=== PATIENT | female | born 1990 | race Caucasian/White ===

== ENCOUNTER 2016-03-07 17:29 | Inpatient (IN) | payer OTHER ==
[~2016-03-07] VITALS: Ht 167.6 cm; Wt 61.2 kg
[2016-03-07] MEDS: D5W AND NSS 1,000 ML IV SCH (14:30)
[2016-03-07] MEDS ORDERED: SODIUM CHLORIDE 0.9% 1000ML 2,000 ML IV STA (17:40)
[2016-03-07] MEDS ORDERED: ONDANSETRON INJ 2 MG/ML 2 ML VIAL IV STA (17:43)
--- NOTE | 2016-03-07 18:22 | DIAGNOSTIC IMAGING REPORT ---
CHEST ONE VIEW PORTABLE CLINICAL HISTORY: Atypical chest pain, syncope, difficulty breathing. COMPARISON STUDY: No previous studies for comparison. FINDINGS: The cardiac and mediastinal contours are normal. There is no evidence of focal pulmonary consolidation. There is no evidence of failure. No pleural effusions are visualized.[ IMPRESSION: No active disease in the chest. Electronically signed by: Cooper Perae M.D. 03/07/2016 6:21 PM Dictated Date/Time: 03/07/2016 6:20 PM
[2016-03-07 18:33] LABS: BASO % 0.6 %; BASO ABS # 0.04 K/uL (0-0.2); COMPLETE YES; EOS % 2.8 %; IG% 0.1 %; LYMPH ABS # 1.97 K/uL (1.2-3.4); MEAN CELL VOLUME 82.9 fL (80-100); MEAN CORPUSCULAR HEMOGLOBIN 29.7 pg (25-34); MEAN CORPUSCULAR HGB CONC 35.8 g/dl (32-36); MEAN PLATELET VOLUME 13.1 fL (7.4-10.4); MONO % 7.5 %; PLATELET COUNT 199 K/uL (130-400); RED BLOOD COUNT 4.34 M/uL (4.2-5.4); WHITE BLOOD COUNT 7.04 K/uL (4.8-10.8)
[2016-03-07 18:41] LABS: ALT/SGPT 17 U/L (12-78); AST/SGOT 11 U/L (15-37); BLOOD UREA NITROGEN 10 mg/dl (7-18); BUN/CREATININE RATIO 13.1 (10-20); CALCIUM 9.4 mg/dl (8.5-10.1); CARBON DIOXIDE 19 mmol/L (21-32); CHLORIDE 102 mmol/L (98-107); CREATININE 0.77 mg/dl (0.60-1.20); GLUCOSE 73 mg/dl (70-99); MAGNESIUM 2.2 mg/dl (1.8-2.4); SODIUM 137 mmol/L (136-145)
[2016-03-07 18:46] LABS: ALKALINE PHOSPHATASE 73 U/L (45-117)
--- NOTE | 2016-03-07 20:40 | EMERGENCY ROOM VISIT NOTE ---
History Report prepared by Mk: Maritza Pascual Under the Supervision of: Hilda LorenzanaO. First contact with patient: 17:34 Chief Complaint: ILLNESS Stated Complaint: SOB, SYNCOPE, AB PAIN History of Present Illness The patient is a 25 year old female who presents to the Emergency Room with complaints of a persistent illness that began two weeks ago. The patient states that she took a test two weeks ago that came back positive. She states that since then she has been ill. The patient states that each morning she is sick with vomiting, abdominal pain, nausea, a headache, shortness of breath, and weakness. She states that all her symptoms last throughout the day. The patient states that she has not kept any food or water down for the past two weeks. She states that she cannot swallow her saliva without vomiting. The patient [place] and has been living in the [facility] since November. She states that she had four syncopal episodes today. The patient denies any active medical problems, and does not wish to have anything done because she does not have medical insurance. She keeps saying, "send me home." Per EMS the patient's blood glucose was 80 mg/dL, her blood pressure is 104/60 mmHg, and police found the patient after a syncopal episode. Pt denies change in vision, cough, sore throat, runny nose, fevers, diarrhea, vaginal bleeding or discharge, pain with urination, and melena. Source of History: patient, EMS Onset: two weeks ago Position: other (global) Quality: other (illness) Timing: other (persistent) Associated Symptoms: + SOB, + abdominal pain, + headache, + nausea, + vomiting, + weakness Review of Systems See HPI for pertinent positives & negatives. A total of 10 systems reviewed and were otherwise negative. Past Medical & Surgical No active medical problems. Family History No pertinent family history stated. Social History Marital Status: in relationship Current/Historical Medications No Active Prescriptions or Reported Meds Allergies Coded Allergies: No Known Allergies (Unverified , 03/07/16) Physical Exam Vital Signs Date Time Temp Pulse Resp B/P Pulse Ox O2 Delivery O2 Flow Rate FiO2 03/07/16 20:20 58 16 92/48 100 Room Air 03/07/16 17:50 37.2 78 22 117/60 100 Room Air Physical Exam GENERAL: Sitting up in bed, disheveled, holding spit in her mouth. EYE EXAM: normal conjunctiva, PERRL and EOM's grossly intact OROPHARYNX: no exudate, no erythema, lips, buccal mucosa, and tongue normal and mucous membranes are moist NECK: supple, no nuchal rigidity, no adenopathy, non-tender LUNGS: Clear to auscultation. Normal chest wall mechanics HEART: no murmurs, S1 normal and S2 normal ABDOMEN: abdomen soft, non-tender, normo-active bowel sounds, no masses, no rebound or guarding. BACK: Back is symmetrical on inspection and there is no deformity, no midline tenderness, no CVA tenderness. SKIN: no rashes and no bruising UPPER EXTREMITIES: upper extremities are grossly normal. LOWER EXTREMITIES: No pitting edema. Calves are equal bilaterally NEURO EXAM: Alert, opens eyes to commands, no focal deficit, answering questioning appropriately. Medical Decision & Procedures ER Provider Diagnostic Interpretation: Xray results per the radiologist and my interpretation. Other results have been interpreted by the radiologist and reviewed by me. CHEST ONE VIEW PORTABLE CLINICAL HISTORY: Atypical chest pain, syncope, difficulty breathing. COMPARISON STUDY: No previous studies for comparison. FINDINGS: The cardiac and mediastinal contours are normal. There is no evidence of focal pulmonary consolidation. There is no evidence of failure. No pleural effusions are visualized.[ IMPRESSION: No active disease in the chest. Electronically signed by: Cooper Perea M.D. 03/07/2016 6:21 PM Dictated Date/Time: 03/07/2016 6:20 PM <14 WKS SINGLE CLINICAL HISTORY: with lower abdominal pain COMPARISON STUDY: No previous studies for comparison. FINDINGS: A single alive intrauterine gestation is visualized. The crown-rump rump length measures 14 mm corresponding to an estimated postmenstrual age of 7 weeks and 5 days. There are small subchorionic hematomas. The heart rate is 154. The right ovary measures 6.8 x 3.4 x 4.1 cm. It contains a 4.5 cm cyst. There is a 2.5 cm adjacent echogenic focus. It is unclear whether this represents fat or adjacent bowel. The left ovary measures 32 x 13 x 16 mm. There is also echogenic focus adjacent the left ovary. Is unclear whether this represents bowel or fat. A CT scan or MRI following delivery is recommended. IMPRESSION: 1. Single alive intrauterine gestation. The estimated postmenstrual age is 7 weeks and 5 days 2. Small subchorionic hematomas 3. 4.5 cm right ovarian cyst. No septations or mural nodules are visualized 4. Echogenic foci adjacent to each ovary. It is unclear whether these represent adjacent bowel loops, or fat as would be seen in ovarian teratomas. Following delivery, a CT scan or MRI of the pelvis is recommended. Electronically signed by: Cooper Perea M.D. 03/07/2016 8:50 PM Dictated Date/Time: 03/07/2016 8:43 PM US IMPRESSION: 1. Single alive intrauterine gestation. The estimated postmenstrual age is 7 weeks and 5 days 2. Small subchorionic hematomas 3. 4.5 cm right ovarian cyst. No septations or mural nodules are visualized 4. Echogenic foci adjacent to each ovary. It is unclear whether these represent adjacent bowel loops, or fat as would be seen in ovarian teratomas. Following delivery, a CT scan or MRI of the pelvis is recommended. Laboratory Results 03/07/16 17:15 Red Blood Count 4.34, Mean Corpuscular Volume 82.9, Mean Corpuscular Hemoglobin 29.7, Mean Corpuscular Hemoglobin Concent 35.8, Mean Platelet Volume 13.1, Neutrophils (%) (Auto) 61.0, Lymphocytes (%) (Auto) 28.0, Monocytes (%) (Auto) 7.5, Eosinophils (%) (Auto) 2.8, Basophils (%) (Auto) 0.6, Neutrophils # (Auto) 4.29, Lymphocytes # (Auto) 1.97, Monocytes # (Auto) 0.53, Eosinophils # (Auto) 0.20, Basophils # (Auto) 0.04 03/07/16 17:15 Test 03/07/16 17:15 White Blood Count 7.04 K/uL (4.8-10.8) Red Blood Count 4.34 M/uL (4.2-5.4) Hemoglobin 12.9 g/dL (12.0-16.0) Hematocrit 36.0 % (37-47) Mean Corpuscular Volume 82.9 fL (80-100) Mean Corpuscular Hemoglobin 29.7 pg (25-34) Mean Corpuscular Hemoglobin Concent 35.8 g/dl (32-36) Platelet Count 199 K/uL (130-400) Mean Platelet Volume 13.1 fL (7.4-10.4) Neutrophils (%) (Auto) 61.0 % Lymphocytes (%) (Auto) 28.0 % Monocytes (%) (Auto) 7.5 % Eosinophils (%) (Auto) 2.8 % Basophils (%) (Auto) 0.6 % Neutrophils # (Auto) 4.29 K/uL (1.4-6.5) Lymphocytes # (Auto) 1.97 K/uL (1.2-3.4) Monocytes # (Auto) 0.53 K/uL (0.11-0.59) Eosinophils # (Auto) 0.20 K/uL (0-0.5) Basophils # (Auto) 0.04 K/uL (0-0.2) RDW Standard Deviation 36.4 fL (36.4-46.3) RDW Coefficient of Variation 12.0 % (11.5-14.5) Immature Granulocyte % (Auto) 0.1 % Immature Granulocyte # (Auto) 0.01 K/uL (0.00-0.02) Anion Gap 16.0 mmol/L (3-11) Est Creatinine Clear Calc Drug Dose 86.6 ml/min Estimated GFR () 122.6 Estimated GFR (Non- 105.8 BUN/Creatinine Ratio 13.1 (10-20) Calcium Level 9.4 mg/dl (8.5-10.1) Magnesium Level 2.2 mg/dl (1.8-2.4) Total Bilirubin 0.6 mg/dl (0.2-1) Direct Bilirubin 0.2 mg/dl (0-0.2) Aspartate Amino Transf (AST/SGOT) 11 U/L (15-37) Alanine Aminotransferase (ALT/SGPT) 17 U/L (12-78) Alkaline Phosphatase 73 U/L (45-117) Troponin I < 0.015 ng/ml (0-0.045) Total Protein 8.8 gm/dl (6.4-8.2) Albumin 4.2 gm/dl (3.4-5.0) Lipase 785 U/L (73-393) Human Chorionic Gonadotropin, Quant [id number] mIU/mL Laboratory results per my review. Medications Administered Medications (Trade) Dose Ordered Sig/Reji Route Start Time Stop Time Status Last Admin Dose Admin Sodium Chloride (Nss 1000ml) 2,000 ml @ 999 mls/hr Q2H1M STAT IV 03/07/16 17:40 03/07/16 19:40 DC 03/07/16 17:40 999 MLS/HR Ondansetron HCl (Zofran Inj) 4 mg NOW STAT IV 03/07/16 17:43 03/07/16 17:45 DC 03/07/16 17:43 4 MG ECG Indication: vomiting, weakness Rate (beats per minute): 59 Rhythm: sinus bradycardia Findings: other (normal axis, flipped T wave in V3) ED Course ED COURSE: Vital signs were reviewed and showed normal vitals The patients medical record was reviewed The above diagnostic studies were performed and reviewed. ED treatments and interventions as stated above. 1733: The patient was evaluated in room B12B. A complete history and physical examination was performed. 1740: Ordered Sodium Chloride 2000 ml @ 999 mls/hr IV. 1742: Ordered Zofran Inj 4 mg IV. 1804: Per the X-ray cytogenetic technician, the patient does not wish to have her x-ray. I reevaluated the patient at this time and she attempted to swallow and vomited afterwards. 0: I did a bedside ultrasound at this time that revealed an IUP that is a lot further along than two weeks. 2032: I reviewed the patient's case with Dr. Sameer BELLAMY. He will evaluate the patient for further management. 2034: Upon reevaluation, the patient is hemodynamically stable.I discussed my findings with the patient and she understands and agrees with the treatment plan. Based on the patients age, coexisting illnesses, exam and lab findings the decision to treat as an inpatient was made. The patient remained stable while under my care. The patient will be evaluated for further management. Medical Decision Differential diagnoses includes but is not limited to gastritis, peptic ulcer disease, GERD, gallbladder disease, pancreatitis, small bowel obstruction, acute coronary syndrome, pericarditis, ischemic bowel, irritable bowel disease, irritable bowel syndrome, appendicitis, diverticulitis, malignancy, hernia, urinary tract infection, torsion, /ectopic (if female), perforation, trauma, infectious, vasovagal event, infection, hypoglycemia, electrolyte abnormalities, cardiac sources, intracerebral event, toxicologic, neurologic, as well as others were entertained. Patient is a 25-year-old female [place] presents the ER he states that she is 2 weeks and has been unable to keep anything down for the past 2 weeks. She notes that she has been having worsening abdominal pain with swallowing. Today she's passed out a total of 5 times. She denies any vaginal bleeding or vaginal discharge. Vitals are stable. She is given IV Zofran and fluids. She had improvement of her symptoms. Labs were obtained and show no significant leukocytosis or anemia. Lipase was elevated just under 800. I do believe this to be secondary to her persistent vomiting which she notes has been there for the past 2 weeks. She has no motor quadrant tenderness on exam. US shows an IUP at 7 weeks. Beta hCG was elevated appropriately. Troponin was negative. EKG was unremarkable. Chest x-ray was normal. Patient was updated at bedside. 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 She also has ovarian cyst per radiology. Case was discussed with internal medicine and she will be evaluated for observation. Consults Time Called: 2029 Consulting Physician: Dr. Sameer BELLAMY Returned Call: 2032 I reviewed the patient's case with Dr. Sameer BELLAMY. He will evaluate the patient for further management. Impression Primary Impression: Hyperemesis gravidarum Additional Impressions: Syncope Teratoma Scribe Attestation The scribe's documentation has been prepared under my direction and personally reviewed by me in its entirety. I confirm that the note above accurately reflects all work, treatment, procedures, and medical decision making performed by me. Departure Information Dispostion Being Evaluated By Hospitalist Prescriptions No Active Prescriptions or Reported Meds Problem Qualifiers Additional Impressions: Syncope Syncope type: unspecified Qualified Codes: R55 - Syncope and collapse
--- NOTE | 2016-03-07 20:52 | DIAGNOSTIC IMAGING REPORT ---
<14 WKS SINGLE CLINICAL HISTORY: with lower abdominal pain COMPARISON STUDY: No previous studies for comparison. FINDINGS: A single alive intrauterine gestation is visualized. The crown-rump rump length measures 14 mm corresponding to an estimated postmenstrual age of 7 weeks and 5 days. There are small subchorionic hematomas. The heart rate is 154. The right ovary measures 6.8 x 3.4 x 4.1 cm. It contains a 4.5 cm cyst. There is a 2.5 cm adjacent echogenic focus. It is unclear whether this represents fat or adjacent bowel. The left ovary measures 32 x 13 x 16 mm. There is also echogenic focus adjacent the left ovary. Is unclear whether this represents bowel or fat. A CT scan or MRI following delivery is recommended. IMPRESSION: 1. Single alive intrauterine gestation. The estimated postmenstrual age is 7 weeks and 5 days 2. Small subchorionic hematomas 3. 4.5 cm right ovarian cyst. No septations or mural nodules are visualized 4. Echogenic foci adjacent to each ovary. It is unclear whether these represent adjacent bowel loops, or fat as would be seen in ovarian teratomas. Following delivery, a CT scan or MRI of the pelvis is recommended. Electronically signed by: Cooper Perea M.D. 03/07/2016 8:50 PM Dictated Date/Time: 03/07/2016 8:43 PM
[2016-03-07] MEDS ORDERED: ONDANSETRON INJ 2 MG/ML 2 ML VIAL IV PRN (21:00)
[2016-03-07] MEDS ORDERED: MAGNESIUM HYDROXIDE SUSP 30 ML UDC PO PRN (21:00)
[2016-03-07] MEDS ORDERED: ACETAMINOPHEN 325 MG TAB PO PRN (21:00)
[2016-03-07] MEDS ORDERED: ALUMINUM/MAGNESIUM/SIMETH (MAALOX MAX) 30 ML UDC PO PRN (21:00)
--- NOTE | 2016-03-07 21:41 | History and Physical ---
History & Physical Date & Time of Service: Mar 07, 2016 at 21:23 Chief Complaint: Sob, Syncope, Ab Pain Primary Care Physician: No Doctor, Assigned History of Present Illness Source: patient 25 y/o F 7 weeks presents due to intractable nausea and vomiting in addition to 5 brief syncopal episodes. She states that she has had mild abdominal cramping pains and has not been able to hold down solids or fluids. She states that she had felt progressively week throughout the day leading to her 5 syncopal episodes. She feels faint and light-headed prior to LOC. She denies CP, SOB a headache or blurred vision. She denies tongue biting, incontinence or a post-ictal state. She has been able to lean down on a mat prior to LOC to avoid any related trauma. 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 Smoking Status: Never Smoker Marital Status: in relationship Allergies Coded Allergies: No Known Allergies (Unverified , 03/07/16) Home Medications No Active Prescriptions or Reported Meds Review of Systems Constitutional: No chills, No fever, No sweats Eyes: No eye pain, No worsening of vision ENT: No hearing loss, No nasal symptoms, No unusual epistaxis Respiratory: No cough, No sputum, No wheezing Cardiovascular: No PND, No chest pain, No orthopnea Abdomen: + nausea, + pain, + vomiting, No GI bleeding, No constipation, No diarrhea Musculoskeletal: No joint pain, No muscle pain Genitourinary - Female: No dysuria, No urinary frequency, No urinary urgency Neurologic: + problem reported (Syncope as above), No memory loss Psychiatric: No depression symptoms Endocrine: No fatigue Hematologic / Lymphatic: No abnormal bleeding/bruising Integumentary: No rash Allergic / Immunologic: No environmental allergies Physical Exam Vital Signs Date Time Temp Pulse Resp B/P Pulse Ox O2 Delivery O2 Flow Rate FiO2 03/07/16 20:20 58 16 92/48 100 Room Air 03/07/16 17:50 37.2 78 22 117/60 100 Room Air General Appearance: WD/WN, no apparent distress Head: normocephalic, atraumatic Eyes: normal inspection, PERRL, EOMI ENT: normal ENT inspection, hearing grossly normal, TMs normal, pharynx normal Neck: supple, no adenopathy, no JVD Respiratory/Chest: chest non-tender, lungs clear, normal breath sounds, no respiratory distress, no accessory muscle use Cardiovascular: regular rate, rhythm, no edema, no gallop, no JVD, no murmur, normal peripheral pulses Abdomen/GI: normal bowel sounds, non tender, soft Back: normal inspection, no CVA tenderness, no muscle spasm, normal range of motion Extremities/Musculoskelatal: normal inspection, no calf tenderness, normal capillary refill, no pedal edema, normal range of motion Neurologic/Psych: reed or wind instrument tuner II-XII nml as tested, no motor/sensory deficits, alert, normal mood/affect, normal reflexes, oriented x 3 Skin: normal color, warm/dry, no rash Lymphatic: no adenopathy Diagnostics Laboratory Results Results Past 24 Hours Test 03/07/16 17:15 Range/Units White Blood Count 7.04 4.8-10.8 K/uL Red Blood Count 4.34 4.2-5.4 M/uL Hemoglobin 12.9 12.0-16.0 g/dL Hematocrit 36.0 37-47 % Mean Corpuscular Volume 82.9 80-100 fL Mean Corpuscular Hemoglobin 29.7 25-34 pg Mean Corpuscular Hemoglobin Concent 35.8 32-36 g/dl Platelet Count 199 130-400 K/uL Mean Platelet Volume 13.1 7.4-10.4 fL Neutrophils (%) (Auto) 61.0 % Lymphocytes (%) (Auto) 28.0 % Monocytes (%) (Auto) 7.5 % Eosinophils (%) (Auto) 2.8 % Basophils (%) (Auto) 0.6 % Neutrophils # (Auto) 4.29 1.4-6.5 K/uL Lymphocytes # (Auto) 1.97 1.2-3.4 K/uL Monocytes # (Auto) 0.53 0.11-0.59 K/uL Eosinophils # (Auto) 0.20 0-0.5 K/uL Basophils # (Auto) 0.04 0-0.2 K/uL RDW Standard Deviation 36.4 36.4-46.3 fL RDW Coefficient of Variation 12.0 11.5-14.5 % Immature Granulocyte % (Auto) 0.1 % Immature Granulocyte # (Auto) 0.01 0.00-0.02 K/uL Sodium Level 137 136-145 mmol/L Potassium Level 4.0 3.5-5.1 mmol/L Chloride Level 102 98-107 mmol/L Carbon Dioxide Level 19 21-32 mmol/L Anion Gap 16.0 3-11 mmol/L Blood Urea Nitrogen 10 7-18 mg/dl Creatinine 0.77 0.60-1.20 mg/dl Est Creatinine Clear Calc Drug Dose 86.6 ml/min Estimated GFR () 122.6 Estimated GFR (Non- 105.8 BUN/Creatinine Ratio 13.1 10-20 Random Glucose 73 70-99 mg/dl Calcium Level 9.4 8.5-10.1 mg/dl Magnesium Level 2.2 1.8-2.4 mg/dl Total Bilirubin 0.6 0.2-1 mg/dl Direct Bilirubin 0.2 0-0.2 mg/dl Aspartate Amino Transf (AST/SGOT) 11 15-37 U/L Alanine Aminotransferase (ALT/SGPT) 17 12-78 U/L Alkaline Phosphatase 73 45-117 U/L Troponin I < 0.015 0-0.045 ng/ml Total Protein 8.8 6.4-8.2 gm/dl Albumin 4.2 3.4-5.0 gm/dl Lipase 785 73-393 U/L Human Chorionic Gonadotropin, Quant [id number] mIU/mL Diagnostic Radiology US 1. Single alive intrauterine gestation. The estimated postmenstrual age is 7 weeks and 5 days 2. Small subchorionic hematomas 3. 4.5 cm right ovarian cyst. No septations or mural nodules are visualized 4. Echogenic foci adjacent to each ovary. It is unclear whether these represent adjacent bowel loops, or fat as would be seen in ovarian teratomas. Following delivery, a CT scan or MRI of the pelvis is recommended Impression Assessment and Plan 25 y/o F 7 weeks presents due to intractable nausea and vomiting in addition to 5 brief syncopal episodes. She states that she has had mild abdominal cramping pains and has not been able to hold down solids or fluids. She states that she had felt progressively week throughout the day leading to her 5 syncopal episodes. She feels faint and light-headed prior to LOC. She denies CP, SOB a headache or blurred vision. She denies tongue biting, incontinence or a post-ictal state. She has been able to lean down on a mat prior to LOC to avoid any related trauma. 1) Intractable N/V - Aggressive IVF, antiemetics provided - progressive diet 2) Syncope - description points toward vaso-vagal etiology possibly with element of hypovolemia - will obtain AM echo and monitor on telemetry 3) 7 weeks - we will consult OBGYN to evaluate ultrasound, review meds and advise on disposition SCDs - full code Total time for this admit including review of meds, labs, imaging - discussion with ER attending and pt 35 min Level of Care Telemetry Resuscitation Status FULL RESUSCITATION VTE Prophylaxis VTE Risk Assessment Done? Y/N: Yes Risk Level: Moderate Given or contraindicated: SCD's
[2016-03-07 23:21] VITALS: Ht 167.6 cm; Wt 61.2 kg
[2016-03-07 23:30] VITALS: BP 108/68; PULSE 63; TEMP 36.6; O2SAT 100
[2016-03-08] VITALS (9 sets, daily range): BP systolic 83–139; BP diastolic 50–98; PULSE 57–90; TEMP 36.5–36.8; O2SAT 95–100
[2016-03-08] MEDS: D5W AND NSS 1,000 ML IV SCH ×3 (02:30→21:50)
[2016-03-08] MEDS ORDERED: INFLUENZA ADMINISTRATION CHARGE ONE (04:30)
[2016-03-08] MEDS ORDERED: INFLUENZA VIRUS QUAD VACCINE 0.5 ML SYR IM. ONE (04:30)
[2016-03-08 06:55] LABS: URINE APPEARANCE CLEAR (CLEAR); URINE BILIRUBIN NEG (NEG); URINE COLOR YELLOW; URINE EPITHELIAL CELL AUTO 20-30 /lpf (0-5); URINE NITRITE NEG (NEG); URINE PH 5.5 (4.5-7.5); URINE SPECIFIC GRAVITY 1.022 (1.000-1.030); UROBILINOGEN NEG (NEG); ZZUR CULT IF INDIC CLEAN CATCH NO
[2016-03-08 07:10] LABS: MANUAL MICROSCOPIC REQUIRED? NO; REVIEW REQ? NO
[2016-03-08 07:19] LABS: PREG INTERNAL NEGATIVE QC NEG CLEAR BACKGROUND; PREG INTERNAL POSITIVE QC POS CONTROL LINE
[2016-03-08] MEDS ORDERED: NURSING VERBAL MED ORDER ONE ×2 (08:45→11:00)
[2016-03-08] MEDS ORDERED: SODIUM CHLORIDE 0.9% 1000ML 1,000 ML IV ONE (09:00)
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
[2016-03-08] MEDS: MULTI-VITAMIN INFUSION INJ 10 ML, THIAMINE HCL INJ 100 MG, FoLIC ACID INJ 1 MG in SODIU... IV SCH (14:27)
--- NOTE | 2016-03-08 20:59 | Progress Note ---
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
--- NOTE | 2016-03-08 22:00 | GYNECOLOGICAL CONSULTATION ---
DATE OF CONSULTATION: 03/08/2016 This is an OB consult. Consult is placed by Dr. Crocker. HISTORY OF PRESENT ILLNESS: This is a 25-year-old at 7 weeks gestation who presented to the Emergency Room on 03/07/2016 with complaints of nausea, vomiting and syncope. She was admitted under medicine service probably because of the syncope. The patient was worked up for syncope and because she was an OB consult was placed. Today, the patient is seen by OB, she had no shortness of breath, no chills, no fever. She appeared very weak. She reports not being able to eat or keep food down for 5 days. She has not been seen in her yet by any [facility]. She has no previous significant obstetric history except for history of elective termination. Review of the patient's record since admission shows low blood pressures. Her labs have been reviewed and are unremarkable except for the presence of elevated lipase and ketones, which are consistent with hyperemesis. PAST MEDICAL HISTORY: The patient has history of hepatitis B. PAST SURGICAL HISTORY: None. SOCIAL HISTORY: The patient denies tobacco, drug or alcohol use. ALLERGIES: No known drug allergies. MEDICATIONS: None. PHYSICAL EXAMINATION: GENERAL: Well-developed, well-nourished black female who is curled up in position in bed. HEART: S1, S2, regular rhythm and rate. LUNGS: Clear to auscultation bilaterally. ABDOMEN: Nontender, nondistended. EXTREMITIES: No cyanosis, clubbing or edema. LABORATORY DATA: Including CBC, complete chemistry and urine have been reviewed. Ultrasound shows IUP 7 weeks gestation. ASSESSMENT AND PLAN: A 25-year-old , at 7 weeks with severe hyperemesis. The patient has been admitted under medicine service and this is an OB consult. I have reviewed patient's management and labs. Plan is to continue with IV hydration and Zofran for nausea, vomiting. I have ordered a banana bag which is a multivitamin bag with thiamine and vitamin B, which will help with her hyperemesis. We will continue to advance her diet as tolerated. If the patient is not able to tolerate the p.o. fluid and meds, then we will have to consider TPN. If the patient, however, is able to tolerate diet as tolerated then we will just continue to advance the diet and discharge her home with p.o. meds for antiemetics and follow up in the office. Thank you very much for the consult. 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
[2016-03-09] VITALS (9 sets, daily range): BP systolic 92–101; BP diastolic 48–68; PULSE 61–86; TEMP 36.6–36.7; O2SAT 96–100
[2016-03-09] MEDS: D5W AND NSS 1,000 ML IV SCH ×3 (05:14→21:15)
[2016-03-09] MEDS: MULTI-VITAMIN INFUSION INJ 10 ML, THIAMINE HCL INJ 100 MG, FoLIC ACID INJ 1 MG in SODIU... IV SCH (09:39)
--- NOTE | 2016-03-09 13:40 | DIAGNOSTIC IMAGING REPORT ---
CHEST CTA for PULMONARY ARTERIES CT DOSE: 307.65 mGycm HISTORY: Syncope. Nausea. X TECHNIQUE: Multiaxial CT images of the chest were performed following the intravenous administration of contrast to evaluate the pulmonary arteries. Maximal intensity projection images were also obtained. COMPARISON STUDY: None. FINDINGS: Pulmonary vasculature enhances appropriately. Thoracic aorta is normal in course and caliber. There is no evidence for aneurysm or dissection. Slight nonspecific bibasilar interstitial prominence. No focal or consolidative infiltrative change. IMPRESSION: 1. Study is negative for pulmonary embolus. 2. Mild bibasilar interstitial prominence. 3. Increased gastric content Electronically signed by: Demetri Carreon M.D. 03/09/2016 1:38 PM Dictated Date/Time: 03/09/2016 1:35 PM
--- NOTE | 2016-03-09 16:30 | ECHOCARDIOGRAM REPORT ---
*NOTICE TO RECEIVING DEMOCRAT AGENCY This information is strictly Confidential and protected under [place] law. [place] law prohibits you from making any further disclosure of this information unless further disclosure is expressly permitted by the written consent of the person to whom it pertains or is authorized by law. A general authorization for the release of medical or other information is not sufficient for this purpose. Hospital accepts no responsibility if the information is made available to any other person, INCLUDING THE PATIENT. Interpretation Summary * Name: RICHIE WISEMAN Study Date: 03/09/2016 10:48 AM * Patient Location: [facility]\S\N278\S\2 HR: 79 * : 1990 (M/d/yyyy) Gender: Female Height: 67 in * Age: 25 yrs Ethnicity: CA Weight: 110 lb * Ordering Physician: Galindo Estrella * Referring Physician: Self, Referred * Performed By: Maritza Bobby RDCS * * Reason For Study: SYNCOPE * BSA: 1.6 m2 * History: SYNCOPE * -- Conclusions -- * * Normal echocardiogram * * The left ventricle is normal in size. * There is normal left ventricular wall thickness. * Left ventricular systolic function is normal. * Ejection Fraction = 65-70%. * The left ventricular wall motion is normal. * No significant valvular disease. Procedure Details * A complete two-dimensional transthoracic echocardiogram was performed (2D, M-mode, Doppler and color flow Doppler). Left Ventricle * The left ventricle is normal in size. * There is normal left ventricular wall thickness. * Left ventricular systolic function is normal. * Ejection Fraction = 65-70%. * The left ventricular wall motion is normal. Right Ventricle * The right ventricle is normal in size and function. Atria * The left atrial size is normal. * Right atrial size is normal. * The interatrial septum is intact with no evidence for an atrial septal defect. Mitral Valve * The mitral valve is normal in structure and function. * There is no mitral regurgitation noted. Tricuspid Valve * The tricuspid valve is normal in structure and function. * There is trace tricuspid regurgitation. * Right ventricular systolic pressure is normal. Aortic Valve * The aortic valve is normal in structure and function. * The aortic valve is trileaflet. * No aortic regurgitation is present. Pulmonic Valve * The pulmonic valve is not well seen, but is grossly normal. * There is no pulmonic valvular regurgitation. Great Vessels * The aortic root is normal size. * No obvious dissection could be visualized. * The pulmonary artery is normal size. * The inferior vena cava is mildly dilated. MMode 2D Measurements and Calculations IVSd 0.60 cm IVSs 0.86 cm LVIDd 3.6 cm LVIDs 2.6 cm LVPWd 0.54 cm LVPWs 0.85 cm IVS/LVPW 1.1 FS 29.2 % EDV(Teich) 56.3 ml ESV(Teich) 24.3 ml EF(Teich) 56.9 % EDV(cubed) 48.6 ml ESV(cubed) 17.3 ml EF(cubed) 64.4 % % IVS thick 44.5 % % LVPW thick 59.2 % LV mass(C)d 51.1 grams LV mass(C)dI 32.5 grams/m\S\2 LV mass(C)s 52.3 grams LV mass(C)sI 33.3 grams/m\S\2 SV(Teich) 32.0 ml SI(Teich) 20.4 ml/m\S\2 SV(cubed) 31.3 ml SI(cubed) 20.0 ml/m\S\2 Ao root diam 2.4 cm Ao root area 4.5 cm\S\2 LA dimension 2.9 cm LA/Ao 1.2 LVAd ap4 30.0 cm\S\2 LVLd ap4 9.1 cm EDV(MOD-sp4) 81.9 ml EDV(sp4-el) 84.4 ml LVAs ap4 15.4 cm\S\2 LVLs ap4 6.8 cm ESV(MOD-sp4) 29.2 ml ESV(sp4-el) 29.6 ml EF(MOD-sp4) 64.3 % EF(sp4-el) 65.0 % LVAd ap2 31.8 cm\S\2 LVLd ap2 9.0 cm EDV(MOD-sp2) 91.1 ml EDV(sp2-el) 95.3 ml LVAs ap2 16.8 cm\S\2 LVLs ap2 7.6 cm ESV(MOD-sp2) 30.2 ml ESV(sp2-el) 31.6 ml EF(MOD-sp2) 66.8 % EF(sp2-el) 66.9 % LVLd %diff -0.70 % EDV(MOD-bp) 86.6 ml LVLs %diff 9.5 % ESV(MOD-bp) 31.5 ml EF(MOD-bp) 63.6 % SV(MOD-sp4) 52.6 ml SI(MOD-sp4) 33.5 ml/m\S\2 SV(MOD-sp2) 60.9 ml SI(MOD-sp2) 38.8 ml/m\S\2 SV(MOD-bp) 55.1 ml SI(MOD-bp) 35.1 ml/m\S\2 SV(sp4-el) 54.9 ml SI(sp4-el) 34.9 ml/m\S\2 SV(sp2-el) 63.7 ml SI(sp2-el) 40.6 ml/m\S\2 Doppler Measurements and Calculations MV E max kala 117.0 cm/sec MV A max kala 85.2 cm/sec MV E/A 1.4 MV dec time 0.23 sec Ao V2 max 152.8 cm/sec Ao max PG 9.3 mmHg Ao max PG (full) 0.27 mmHg LV V1 max PG 9.1 mmHg LV V1 max 150.6 cm/sec TR max kala 159.0 cm/sec
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
[2016-03-10 00:27] VITALS: BP 87/50; PULSE 72; TEMP 36.6; O2SAT 99
[2016-03-10] MEDS: D5W AND NSS 1,000 ML IV SCH (04:58)
[2016-03-10 07:37] VITALS: BP 108/69; PULSE 63; TEMP 36.8; O2SAT 99
[2016-03-10] MEDS ORDERED: PRENATAL VITAMIN TAB PO SCH ×2 (08:00)
[2016-03-10] MEDS ORDERED: PYRIDOXINE HCL 50 MG TAB PO SCH ×2 (08:00)
[2016-03-10] MEDS ORDERED: ONDA4TAB10 SL (08:37)
[2016-03-10] MEDS ORDERED: PRENTAB26 PO (08:37)
[2016-03-10] MEDS ORDERED: PYR50 PO (08:37)
--- NOTE | 2016-03-10 08:42 | Discharge Instructions ---
Discharge Instructions Admission Reason for Admission: Syncope, Hyperemesis of Discharge Discharge Diagnosis / Problem: Syncope, Hyperemesis of Discharge Goals Goal(s): Improve disease control, Therapeutic intervention Activity Recommendations Activity Limitations: resume your previous activity None . Instructions / Follow-Up Instructions / Follow-Up You were admitted with intractable nausea and vomiting of which caused you to pass out (syncope). You were given IV fluids for hydration as well as multivitamin infusions. You were given medication for nausea as well. The ultrasound of your heart was normal, and a CT scan of your chest was negative for a pulmonary embolism as you were having chest pains and shortness of breath. The ultrasound of your baby showed a viable and was consistent with a 7 or 8 week at this time. You should continue to take vitamins with food throughout your . You can take Vitamin B6 daily for nausea as well as taking small sips of fluid throughout the day. You can also take Zofran as needed for nausea. Please follow up with an Biodiesel Plant Operations Engineer as soon as possible after discharge. Current Hospital Diet Patient's current hospital diet: Regular Diet Discharge Diet Recommended Diet: Regular Diet Procedures Procedures Performed: CT Chest ultrasound ECHOCARDIOGRAM Pending Studies Studies pending at discharge: no Medical Emergencies . Who to Call and When: Medical Emergencies: If at any time you feel your situation is an emergency, please call 911 immediately. . Non-Emergent Contact Non-Emergency issues call your: Specialist (Biodiesel Plant Operations Engineer) Call Non-Emergent contact if: you have a fever, you have any medication questions or if you have worsening nausea or vomiting, vaginal bleeding, abdominal cramping, or recurrent episodes of passing out. . . "Provider Documentation" section prepared by Brandie Gambino. VTE Core Measure Inpt VTE Proph given/why not?: SCD's
[2016-03-10] MEDS ORDERED: ONDANSETRON HOME PACK 4MG OD TAB PO ONE (09:45)
[2016-03-10] MEDS: MULTI-VITAMIN INFUSION INJ 10 ML, THIAMINE HCL INJ 100 MG, FoLIC ACID INJ 1 MG in SODIU... IV SCH (10:08)
[2016-03-10 11:46] VITALS: BP 108/69; PULSE 63; TEMP 36.8; O2SAT 99
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
[2016-03-11] MEDS ORDERED: PYRIDOXINE HCL 50 MG TAB PO SCH (08:00)
[2016-03-11] MEDS ORDERED: PRENATAL VITAMIN TAB PO SCH (08:00)
== END 2016-03-10 12:31 | disposition other institution (70) | DRG 781 ==
LOC: ENRESERVTM → ENRESERVDT → C.EDB 17:34 → C.MED 21:03 → EEVIPCON 21:03 → C.4E 03-09 20:32
PROVIDERS: ADMIT Internal Medicine; ATTEND Family Medicine
DX: O21.0 Mild hyperemesis gravidarum (principal); R55 Syncope and collapse; K21.9 Gastro-esophageal reflux disease without esophagitis; O99.611 Diseases of the digestive system complicating pregnancy, first trimester; O99.280 Endocrine, nutritional and metabolic diseases complicating pregnancy, unspecified trimester; O26.891 Other specified pregnancy related conditions, first trimester; E86.1 Hypovolemia; O34.80 Maternal care for other abnormalities of pelvic organs, unspecified trimester; N83.201 Unspecified ovarian cyst, right side; O99.511 Diseases of the respiratory system complicating pregnancy, first trimester; R06.02 Shortness of breath; R07.89 Other chest pain; M79.606 Pain in leg, unspecified; Z86.19 Personal history of other infectious and parasitic diseases; Z63.0 Problems in relationship with spouse or partner; Z3A.01 Less than 8 weeks gestation of pregnancy